=== PATIENT | female | born 2000 | race Caucasian/White ===

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

== ENCOUNTER 2022-01-14 18:55 | Outpatient (REF) | payer MEDICAID, SELFPAY ==
[2022-01-15 14:14] LABS: GC Result Negative (Negative)
[2022-01-15 14:45] LABS: Specimen Description VAGINA
[2022-01-15 14:48] LABS: Chlamydia Result Positive (Negative)
== END 2022-01-14 18:56 | disposition home or self-care (01) ==
LOC: NCHCN 18:55
PROVIDERS: PCP Pediatrics; Visit Provider Nurse Practitioner Family
DX: Z11.3 Encounter for screening for infections with a predominantly sexual mode of transmission (principal)
CPT/HCPCS: 87491; 87591

== ENCOUNTER 2022-10-29 14:53 | Outpatient (REF) | payer MEDICAID, SELFPAY ==
--- NOTE | 2022-10-29 13:30 | PAPFT_PTH ---
PATIENT: Sanna Yanes LOC: [facility]#:[id number] AGE/SX: 22/F ROOM: RE10/29/[address]: Nancy Escobar : 2000 BED: DIS: 10/29/2022 SPEC #: [id number] RECD: 10/30/22 12:52 STATUS: ALIYAH RERadha #: [id number] ISAMAR: 10/29/22 13:[address]: Nancy Escobar DEPT: [facility] Cytology RECD BY: Pilra Rob Tissues: 1 - CX/ENDOCX FOR PAP SMEARS Procedures: PAP THIN PREP/[facility] Screening Comments: [id number] (CHLAMYDIA/GC)
[2022-10-31 12:48] LABS: Chlamydia Result Negative (Negative); GC Result Negative (Negative)
== END 2022-10-29 14:54 | disposition home or self-care (01) ==
LOC: NCHCN 14:53
PROVIDERS: Visit Provider Family Medicine
DX: Z11.3 Encounter for screening for infections with a predominantly sexual mode of transmission (principal); Z12.4 Encounter for screening for malignant neoplasm of cervix
CPT/HCPCS: 87491; 87591; 88142

== ENCOUNTER 2022-11-13 15:51 | Outpatient (REF) | payer MEDICAID, SELFPAY ==
[2022-11-15 14:34] LABS: Chlamydia Result Negative (Negative); GC Result Negative (Negative)
== END 2022-11-13 15:52 | disposition home or self-care (01) ==
LOC: NCHCN 15:51
PROVIDERS: Visit Provider Family Medicine
DX: Z11.3 Encounter for screening for infections with a predominantly sexual mode of transmission (principal)
CPT/HCPCS: 87491; 87591